=== PATIENT | female | born 1995 | race Caucasian/White ===

== ENCOUNTER 2020-03-09 07:01 | Day surgery (SDC) | payer OTHER ==
[~2020-03-09] VITALS: Ht 177.8 cm; Wt 81.0 kg
[2020-03-09] MEDS ORDERED: CHLORHEXIDINE 15 ML UDC ONE (07:21)
[2020-03-09 07:30] VITALS: BP 112/73
[2020-03-09] MEDS ORDERED: AMPH20TA2 PO (07:30)
[2020-03-09 07:35] LABS: HCG UR SG 1.028 (1.003-1.030)
[2020-03-09] MEDS ORDERED: MIDAZOLAM 1 MG/ML, 2ML ONE (07:50)
[2020-03-09] MEDS ORDERED: FENTANYL PF 250 MCG/5ML ONE (07:50)
[2020-03-09] MEDS ORDERED: LACTATED RINGERS 1,000 ML IV SCH (07:51)
[2020-03-09] MEDS ORDERED: CHLORHEXIDINE 15 ML UDC MM ONE (08:00)
[2020-03-09] MEDS ORDERED: LIDOCAINE 1%-EPI 1:100K, 20ML ONE (08:49)
[2020-03-09] MEDS ORDERED: ONDANSETRON 2MG/ML, 2ML ONE (09:12)
[2020-03-09] MEDS ORDERED: DEXAMETHASONE 4 MG/ML, 1ML ONE ×2 (09:12)
[2020-03-09] MEDS ORDERED: PROPOFOL 10 MG/ML, 20ML ONE (09:12)
[2020-03-09] MEDS ORDERED: ROCURONIUM 10MG/ML,5ML ONE (09:12)
[2020-03-09] MEDS ORDERED: ACETAMINOPHEN 325 MG TABLET PO PRN (09:30)
[2020-03-09] MEDS ORDERED: PROMETHAZINE 25 MG/ML, 1ML IVPush PRN (09:30)
[2020-03-09] MEDS ORDERED: MEPERIDINE/PF 25MG/0.5ML IVPush PRN (09:30)
[2020-03-09] MEDS ORDERED: ONDANSETRON 2MG/ML, 2ML IVPush PRN (09:30)
[2020-03-09] MEDS ORDERED: hydrALAzine 20 MG/ML, 1ML IV PRN (09:30)
[2020-03-09] MEDS ORDERED: LABETALOL 5MG/ML, 20ML IV PRN (09:30)
[2020-03-09] MEDS: FENTANYL PF 100 MCG/2ML IV PRN ×4 (09:35→10:06)
[2020-03-09] MEDS ORDERED: FENTANYL PF 100 MCG/2ML ONE ×2 (09:37→09:45)
[2020-03-09] MEDS ORDERED: OXYcodone 5 MG/5 ML ORAL.SOL UDC ONE (09:45)
[2020-03-09] MEDS ORDERED: ACETAMINOPHEN 650 MG/20.3 ML UDC ONE (09:45)
[2020-03-09] MEDS: OXYcodone 5 MG/5 ML ORAL.SOL UDC PO PRN ×2 (09:49→14:44)
[2020-03-09] MEDS ORDERED: HYDROmorphone 1 MG/ML, 1ML INJ ONE (10:44)
[2020-03-09] MEDS: HYDROmorphone 1 MG/ML, 1ML INJ IVPush PRN ×2 (10:47→11:00)
[2020-03-09] MEDS ORDERED: PROMETHAZINE 25 MG SUPP PR ONE (11:58)
[2020-03-09] MEDS ORDERED: PROMETHAZINE 12.5 MG SUPP PR PRN (12:00)
[2020-03-09] MEDS ORDERED: PROMETHAZINE 12.5 MG SUPP PR ONE (14:00)
== END 2020-03-09 15:25 | disposition home or self-care (01) ==
LOC: OUT 07:01
PROVIDERS: ATTEND Otolaryngology
DX: J35.1 Hypertrophy of tonsils (principal); Z11.59 Encounter for screening for other viral diseases
CPT/HCPCS: 42826; 81025; 87635; 88304; J1100; J1170; J2250; J2405; J2704; J3010; J3490; J7120